=== PATIENT | male | born 1975 | race Caucasian/White ===

== ENCOUNTER → 2019-08-15 | Outpatient (CLI) | payer BC, OTHER ==
--- NOTE | 2019-08-15 09:11 | CT ---
EXAMINATION TYPE: CT sinus wo con DATE OF EXAM: 08/15/2019 COMPARISON: None HISTORY: Facial pressure and pain with recurring infections CT DLP: 622.[address] of the paranasal sinuses was performed in the axial and coronal planes. Bone and soft tissue settings are submitted. The paranasal sinuses demonstrate normal aeration and development. Mild mucosal thickening ethmoid air cells. Main paranasal sinuses are well-aerated. The osteal meatal units are patent bilaterally. The nasal septum is midline. No bony destructive changes are seen within the field of view. Right temporal parietal craniotomy yaa barahona. IMPRESSION: Mild chronic ethmoidal sinusitis.
== END ==
LOC: RADCTMAIN 08:21
PROVIDERS: ATTEND Family Medicine
DX: J32.2 Chronic ethmoidal sinusitis (principal)
CPT/HCPCS: 70486

== ENCOUNTER → 2023-11-27 | Outpatient (CLI) | payer BC ==
--- NOTE | 2023-11-27 17:52 | CT ---
EXAMINATION TYPE: CT ChestAbdPelvis wo/w con DATE OF EXAM: 11/27/2023 COMPARISON: None HISTORY: abnormal weightloss x [address] DLP: 1533.8 mGycm CONTRAST: CT scan of the chest, abdomen and pelvis is performed with Oral Contrast and without and with IV Cont rast, patient injected with 100 cc mL of Isovue 300. CT Chest: LUNGS: Pleural based well circumscribed nonenhancing mass left upper lobe anteriorly measures 2.3 x 1 .7 cm and is likely benign in nature however given patient's symptoms consider PET scan for further e valuation. The lungs are clear and free of infiltrate or atelectasis. No pulmonary nodule or mass is detected. No pleural effusion or CT evidence of interstitial lung disease. MEDIASTINUM: Thoracic aorta is of normal caliber. The heart is not enlarged. No evidence for media stinal mass or adenopathy. HILAR STRUCTURES: No evidence for mass. No hilar adenopathy is appreciated. OTHER: No significant abnormality. CONTRAST CT ABDOMEN AND PELVIS FINDINGS: LIVER/GB: No calcified gallstones. No space occupying hepatic lesion. Biliary tree is of normal ca liber. PANCREAS: No inflammation. No distinct mass. SPLEEN: No splenic enlargement. No lesion seen. ADRENALS: No nodule. No thickening. KIDNEYS/BLADDER: No hydronephrosis. No nephrolithiasis. No disctinct renal mass. BOWEL: Appendectomy clips are in place. Normal bowel caliber. No inflammation. GENITAL ORGANS: No gross abnormality. LYMPH NODES: No greater than 1cm abdominal or pelvic lymph nodes are appreciated. AORTA: No significant abnormality. OSSEOUS STRUCTURES: No significant abnormality is seen. OTHER: No significant additional abnormality is seen. IMPRESSION: 1. Pleural based well circumscribed nonenhancing mass left upper lobe anteriorly measures 2.3 x 1.7 c m and is likely benign in nature however given patient's symptoms consider PET scan for further evalu ation.
== END | disposition home or self-care (01) ==
LOC: RADCTMAIN 14:48
PROVIDERS: ATTEND Family Medicine
DX: R91.8 Other nonspecific abnormal finding of lung field (principal); R63.4 Abnormal weight loss
CPT/HCPCS: 71270; 74178; Q9967